=== PATIENT | female | born 1985 | race Caucasian/White ===

== ENCOUNTER 2018-12-31 11:26 | Inpatient (IN) ==
[2018-12-31 11:42] VITALS: BMI 24.8
[2018-12-31] MEDS ORDERED: VANCOMYCIN HCL 1 GM VIAL 1 G in D5W 250 ML IV 250 ML IV ONE (12:18)
--- NOTE | 2018-12-31 12:22 | DR.GENAD ---
HPI Time Seen Time Seen by Provider: 12/31/18 12:05 PCP Primary Care Physician: Kapil HPI Comment HPI Comment: ABSCESS PALM OF RIGHT HAND AND DRAINING SLIGHTLY. ON BACTRIM AND CLINDAMYCIN WITH NAPROXEN SINCE THURSDAY. REDNESS AT WRIST BEFOR MEDS BUT RED STREAKING IS UP TO RIGHT AXILLA. NO FEVER. LESION ON PALM OF RIGHT HAND DRAINING PUS. Complaint/Symptoms Chief Complaint Doctors Comments: BITE RT PALM TIMES ONE WEEK THAT PROGRESSIVELY GOT WORSE. PLACE ON CLINDAMYCIN AND BACTRIM THURSDAY AND TOOK MED FOR 2 DAYS. NOW RED STREAK UP TO RIGHT AXILLA. Chief Complaint:: Patient states that her hand had a small bite looking erich last week. It progressivley got worse until she decided to go to the ER in [place] and they put her on antibiotics. She states that they did not culture the area and that the antibiotics have not started working and she feels like it should have after 72 hours. Nurses notes reviewed Nurses Notes Review: Yes Source History Provided: Patient, Family Member and Friend Mode of Arrival Mode of Arrival: Ambulatory Timing Onset of Chief Complaint: 12/24/18 Came on: Suddenly Duration Duration: Constant Duration: Days Severity Severity: Moderate Modifying Factors Worsens:: MOVEMENT. Improves:: RESTING. Associated Signs and Symptoms Associated Signs and Symptoms: RED STREAKING RUE. Other History Other History: NO HISTORY OF DM. 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 Family History History of Family Medical Conditions: Yes Family Medical History: [place] and Hypertension Social History Does patient currently use any type of tobacco product: No Have you used tobacco products in the last 12 months: No Type of Tobacco Use: None Does any household member use tobacco: No Alcohol Use: None Do you use any recreational Drugs:: No Lives With: Alone Lives Where: Home infectious screening In the last 2 months have you had wt loss of >10#?: NO Have you had fever, night sweats or hemotysis?: No Have you traveled outside the country in the last 6 months?: No Isolation: Standard ROS Review of Systems Constitutional: No Symptoms Reported, Weakness and Fatigue; negative Chills and Fever Eyes: No Symptoms Reported; negative Eye Pain, Tearing and Discharge ENTM: negative Ear Pain, Nose Discharge, Nose Congestion and Throat Pain Respiratoy: No Symptoms Reported, Short of Breath and Wheezing Cardiovascular: No Symptoms Reported and Palpitations; negative Chest Pain and Edema Gastrointestinal/Abdominal: No Symptoms Reported; negative Abdominal Pain, Constipation, Diarrhea, Nausea and Vomiting Genitourinary: No Symptoms Reported; negative Dysuria, Frequency and Hematuria Neurological: No Symptoms Reported and Headache; negative Weakness and Dizziness Musculoskeletal: Muscle Pain; negative Back Pain and Neck Pain Integumentary: No Symptoms Reported, Lesions (ABSCESS LEFT HAND.) and Rash; negative Bruises and Juandice Hematologic/Lymphatic: No Symptoms Reported, Swollen Glands and Lymphadenopathy (RIGHT AXILLA.); negative Anemia, Easy Bleeding and Easy Bruising Endocrine: negative Increased Thirst, Increased Urine and Decreased Appetite Psychiatric: Depression All Other Systems: Reviewed and Negative PE Vital Signs Vitals: Temperature 98.3 F Pulse Rate [Left Brachial] 113 Pulse Rate 104 Respiratory Rate 25 Blood Pressure [Left Arm] 107/68 Blood Pressure 124/84 O2 Sat by Pulse Oximetry 100 General Limitations: No Limitations General Appearance: Alert and In No Apparent Distress; negative In Distress Head Head Exam: Normal Inspection, Atraumatic and Normocephalic Eyes Eye exam: Normal Appearance and PERRL; negative Scleral Icterus and Conjunctival Injection ENT ENT Exam: Normal Exam, Normal Oropharynx, Normal External Ear Exam, Mucous Membranes Moist and TM's Normal Bilaterally External Ear Exam: Normal External Inspection; negative Mastoid Tenderness, Pain with Movement and External Tenderness TM/Canal Exam: Bilateral: Normal Nose Exam: negative Sinus Tenderness, Nasal Deviation and Septal Hematoma Mouth Exam: Normal Inspection; negative Trismus, Lip Swelling and Tongue Swe lling Throat Exam: Normal Inspection; negative Tonsillar Erythema, Tonsillomegaly and Tonsillar Exudate Neck Neck Exam: Normal Inspection, Full ROM and Lymphadenopathy; negative Trachea Midline and Tenderness Chest Chest Inspection: Normal Inspection and Symmetric Chest Wall Rise; negative Tenderness and Rash Respiratory Respiratory Exam: Normal Lung Sounds Bilat; negative Chest Wall Tenderness and Respiratory Distress Respiratory Exam: Bilateral: Clear to Auscultation Cardiovascular Cardiovascular Exam: Regular Rate, Normal Rhythm and Normal Heart Sounds; negative Systolic Murmur, Diastolic Murmur, Rubs and Gallop Abdominal Exam Abdominal Exam: Normal Inspection, Normal Bowel Sounds and Soft; negative Tenderness Extremities Extremities Exam: Tenderness (ABSCESS CELLULITIS RT HAND WITH RED STREAKING TO RT AXILLA.) and Normal Capillary Refill Back Back Exam: Normal Inspection Neurologic Neurological Exam: Alert and Oriented X3; negative Motor Sensory Deficit Psychiatric Psychiatric Exam: Normal Affect and Normal Mood Skin Skin Exam: Rash, Erythema and Other (ABSCESS AND CELLULITIS RIGHT HAND WITH RED STREAKING UP TO AXILLA.) MDM Additional Information Additional Information Obtained From: Family Findings: RUE. Differential Diagnosis Differential Diagnosis: CELLULITIS RIGHT, MEDICATION EFFECT, SEIZURE, AMS, RESPIRATORY DISTRESS. COURSE Treatment Treatment: SEE ORDERS. ROR Labs Reviewed Laboratory Results Reviewed?: Yes Result Diagrams: 01/01/19 05:57 01/01/19 05:57 Laboratory: 12/31/18 12:58 Hand - Right Gram Stain - Final 12/31/18 12:58 Hand - Right Wound Culture - Preliminary WBC 4.6 X10^3/uL (3.6-10.0) 01/01/19 05:57 RBC 3.06 X10^6/uL (3.5-5.4) L 01/01/19 05:57 Hgb 9.3 g/dL (12.0-16.0) L 01/01/19 05:57 Hct 27.8 % (36.0-47.0) L 01/01/19 05:57 MCV 90.8 fL (80.0-100.0) 01/01/19 05:57 MCH 30.3 pg (27.0-34.0) 01/01/19 05:57 MCHC 33.4 g/dL (33.0-35.0) 01/01/19 05:57 RDW 14.6 % (11.6-16.5) 01/01/19 05:57 Plt Count 201 X10^3/uL (150.0-450.0) 01/01/19 05:57 MPV 7.8 fL (7.4-11.0) 01/01/19 05:57 Neut % (Auto) 53.5 % (42.0-75.0) 01/01/19 05:57 Lymph % (Auto) 26.9 % (21.0-51.0) 01/01/19 05:57 [place] % (Auto) 15.4 % (0.0-13.0) H 01/01/19 05:57 Eos % (Auto) 3.7 % (0.9-2.9) H 01/01/19 05:57 Baso % (Auto) 0.5 % (0.2-1.0) 01/01/19 05:57 Neut # (Auto) 2.4 x10^3/uL (2.2-4.8) 01/01/19 05:57 Lymph # (Auto) 1.2 X10^3/uL (1.3-2.9) L 01/01/19 05:57 [place] # (Auto) 0.7 x10^3/uL (0.3-0.8) 01/01/19 05:57 Eos # (Auto) 0.2 x10^3/uL (0.0-0.2) 01/01/19 05:57 Baso # (Auto) 0.0 X10^3/uL (0.0-0.1) 01/01/19 05:57 Absolute Nucleated RBC 0.0 /100WBC 01/01/19 05:57 Sample Site Lr 12/31/18 17:05 ABG pH 7.330 (7.35-7.45) L 12/31/18 17:05 ABG pCO2 39.0 mmHg (35.0-45.0) 12/31/18 17:05 ABG pO2 87.0 mmHg (80.0-100.0) 12/31/18 17:05 ABG HCO3 20.6 mmol/L (22-26) L 12/31/18 17:05 ABG O2 Saturation 96.0 % (90-100) 12/31/18 17:05 ABG Base Excess -4.9 mmol/L (-2.0-2.0) L 12/31/18 17:05 Oleg Test Pos 12/31/18 17:05 A-a Gradient 64.0 mmHg 12/31/18 17:05 FiO2 28.0 12/31/18 17:05 Blood Gas Comments Dereje well cb 12/31/18 17:05 Sodium 140 mmol/L (136-145) 01/01/19 05:57 Corrected Sodium 140 mmol/L (136-145) 01/01/19 05:57 Potassium 3.9 mmol/L (3.5-5.1) 01/01/19 05:57 Chloride 109 mmol/L (98-107) H 01/01/19 05:57 Carbon Dioxide 22.0 mmol/L (21-32) 01/01/19 05:57 BUN 4 mg/dL (7-18) L 01/01/19 05:57 Creatinine 0.79 mg/dL (0.55-1.02) 01/01/19 05:57 Est GFR (MDRD) Af Amer > 60 (>60) 01/01/19 05:57 Est GFR (MDRD) Non-Af > 60 (>60) 01/01/19 05:57 Glucose 117 mg/dL (65-99) H 01/01/19 05:57 Lactic Acid 0.6 mmol/L (0.4-2.0) 12/31/18 13:10 Calcium 7.8 mg/dL (8.5-10.1) L 01/01/19 05:57 Corrected Calcium 9.0 mg/dL (8.5-10.1) 01/01/19 05:57 Total Bilirubin 0.10 mg/dL (0.2-1.0) L 01/01/19 05:57 AST 22 Units/L (15-37) 01/01/19 05:57 ALT 24 Units/L (12-78) 01/01/19 05:57 Alkaline Phosphatase 55 Units/L (46-116) 01/01/19 05:57 Creatine Kinase 122 Units/L (26-192) 12/31/18 13:10 Troponin I < 0.02 ng/mL (0-1.5) 12/31/18 13:10 C-Reactive Protein 130.00 mg/L (0-3.0) H 12/31/18 13:10 Total Protein 5.6 g/dL (6.4-8.2) L 01/01/19 05:57 Albumin 2.5 g/dL (3.4-5.0) L 01/01/19 05:57 Globulin 3.1 g/dL (2.5-4.5) 01/01/19 05:57 Albumin/Globulin Ratio 0.8 Ratio (1.1-2.1) L 01/01/19 05:57 EKG Rate: 113 [place]: LAD Rhythm: ST Block: None Hypertrophy: None ST: Normal Diagnosis Discharge Problem: Seizure, Acute respiratory distress Cellulitis Qualifiers: Site of cellulitis: extremity Site of cellulitis of extremity: upper extremity Laterality: right Qualified Code(s): L03.113 - Cellulitis of right upper limb Adverse drug effect Qualifiers: Encounter type: initial encounter Qualified Code(s): T50.905A - Adverse effect of unspecified drugs, medicaments and biological substances, initial encounter Altered mental state Qualifiers: Altered mental status type: transient alteration of awareness Qualified Code(s): R40.4 - Transient alteration of awareness Accidental medication error Qualifiers: Encounter type: initial encounter Qualified Code(s): T50.901A - Poisoning by unspecified drugs, medicaments and biological substances, accidental (unintentio nal), initial encounter
[2018-12-31] MEDS ORDERED: NS 250 ML IV 250 ML ONE ×2 (12:45→13:40)
[2018-12-31] MEDS ORDERED: TORADOL 30 MG VIAL ONE (12:45)
[2018-12-31] MEDS ORDERED: VANCOMYCIN HCL 1 GM VIAL ONE ×3 (12:45→13:39)
[2018-12-31] MEDS ORDERED: TORADOL 30 MG VIAL IVP ONE (12:46)
[2018-12-31] MEDS ORDERED: ATIVAN INJ 2 MG VIAL ONE (13:13)
[2018-12-31] MEDS ORDERED: ATIVAN INJ 2 MG VIAL IVP ONE (13:26)
[2018-12-31 13:33] LABS: ALANINE AMINOTRANSFERASE 28 Units/L (12-78); ALBUMIN 3.4 g/dL (3.4-5.0); ALKALINE PHOSPHATASE 67 Units/L (46-116); ASPARTATE AMINO TRANSFERASE 23 Units/L (15-37); BLOOD UREA NITROGEN 4 mg/dL (7-18); CALCIUM 8.8 mg/dL (8.5-10.1); CHLORIDE 101 mmol/L (98-107); CREATININE 0.91 mg/dL (0.55-1.02); SODIUM 137 mmol/L (136-145); TOTAL PROTEIN 7.3 g/dL (6.4-8.2); eGFR NON BLACK RACES > 60 (>60)
[2018-12-31] MEDS ORDERED: SOLU-Medrol 125 MG VIAL IVP ONE (13:33)
[2018-12-31] MEDS ORDERED: BENADRYL INJ 50 MG VIAL IVP ONE (13:33)
[2018-12-31] MEDS ORDERED: ADRENALINE CHL INJ IM ONE (13:33)
[2018-12-31 13:34] LABS: ABG BASE EXCESS -10.1 mmol/L (-2.0-2.0); ABG HCO3 24.3 mmol/L (22-26)
[2018-12-31 13:35] LABS: BASOPHILS % (AUTO) 0.4 % (0.2-1.0); EOSINOPHILS # (AUTO) 0.2 x10^3/uL (0.0-0.2); EOSINOPHILS % (AUTO) 2.9 % (0.9-2.9); HEMATOCRIT 33.1 % (36.0-47.0); HEMOGLOBIN 11.1 g/dL (12.0-16.0); LYMPHOCYTES % (AUTO) 14.2 % (21.0-51.0); MEAN CORPUSCULAR HEMOGLOBIN 30.3 pg (27.0-34.0); MEAN CORPUSCULAR HGB CONC 33.7 g/dL (33.0-35.0); MEAN CORPUSCULAR VOLUME 90.1 fL (80.0-100.0); MEAN PLATELET VOLUME 8.1 fL (7.4-11.0); MONOCYTES # (AUTO) 0.8 x10^3/uL (0.3-0.8); MONOCYTES % (AUTO) 11.8 % (0.0-13.0); NEUTROPHILS # (AUTO) 4.9 x10^3/uL (2.2-4.8); NEUTROPHILS % (AUTO) 70.7 % (42.0-75.0); PLATELET COUNT 255 X10^3/uL (150.0-450.0); RED BLOOD COUNT 3.67 X10^6/uL (3.5-5.4); RED CELL DISTRIBUTION WIDTH 14.4 % (11.6-16.5); WHITE BLOOD COUNT 6.9 X10^3/uL (3.6-10.0)
[2018-12-31 13:35] LABS: ABG ALLEN TEST POS
[2018-12-31] MEDS: NS 1000 ML 1,000 ML IV SCH ×2 (14:14→18:38)
[2018-12-31] MEDS ORDERED: NS 1000 ML 1,000 ML IV ONE (15:45)
[2018-12-31 17:12] LABS: ABG ALLEN TEST POS; ABG BASE EXCESS -4.9 mmol/L (-2.0-2.0); ABG HCO3 20.6 mmol/L (22-26)
[2018-12-31 17:17] LABS: CREATINE KINASE 122 Units/L (26-192); TROPONIN I < 0.02 ng/mL (0-1.5)
[2018-12-31] MEDS ORDERED: DEMEROL INJ ONE (17:36)
[2018-12-31] MEDS ORDERED: ZOFRAN INJ 4 MG VIAL ONE (17:36)
[2018-12-31] MEDS ORDERED: DEMEROL INJ IVP ONE (17:58)
[2018-12-31] MEDS ORDERED: ZOFRAN INJ 4 MG VIAL IVP ONE (17:59)
[2018-12-31] MEDS ORDERED: ZOFRAN INJ 4 MG VIAL IVP PRN (18:19)
[2018-12-31] MEDS: TORADOL 30 MG VIAL IVP PRN (19:50)
[2018-12-31] MEDS: NORCO 5/325 MG TAB PO PRN (21:44)
[2019-01-01] MEDS: TORADOL 30 MG VIAL IVP PRN ×2 (02:39→16:32)
[2019-01-01] MEDS: NS 1000 ML 1,000 ML IV SCH ×3 (02:43→16:26)
[2019-01-01] MEDS: DEMEROL INJ IVP PRN ×4 (05:30→19:50)
[2019-01-01 06:26] LABS: ALANINE AMINOTRANSFERASE 24 Units/L (12-78); ALBUMIN 2.5 g/dL (3.4-5.0); ALKALINE PHOSPHATASE 55 Units/L (46-116); ASPARTATE AMINO TRANSFERASE 22 Units/L (15-37); BLOOD UREA NITROGEN 4 mg/dL (7-18); CALCIUM 7.8 mg/dL (8.5-10.1); CHLORIDE 109 mmol/L (98-107); COR NA(FOR HYPERGLY) 140 mmol/L (136-145); CREATININE 0.79 mg/dL (0.55-1.02); SODIUM 140 mmol/L (136-145); TOTAL PROTEIN 5.6 g/dL (6.4-8.2); eGFR NON BLACK RACES > 60 (>60)
[2019-01-01 06:28] LABS: BASOPHILS % (AUTO) 0.5 % (0.2-1.0); EOSINOPHILS # (AUTO) 0.2 x10^3/uL (0.0-0.2); EOSINOPHILS % (AUTO) 3.7 % (0.9-2.9); HEMATOCRIT 27.8 % (36.0-47.0); HEMOGLOBIN 9.3 g/dL (12.0-16.0); LYMPHOCYTES # (AUTO) 1.2 X10^3/uL (1.3-2.9); LYMPHOCYTES % (AUTO) 26.9 % (21.0-51.0); MEAN CORPUSCULAR HEMOGLOBIN 30.3 pg (27.0-34.0); MEAN CORPUSCULAR HGB CONC 33.4 g/dL (33.0-35.0); MEAN CORPUSCULAR VOLUME 90.8 fL (80.0-100.0); MEAN PLATELET VOLUME 7.8 fL (7.4-11.0); MONOCYTES # (AUTO) 0.7 x10^3/uL (0.3-0.8); MONOCYTES % (AUTO) 15.4 % (0.0-13.0); NEUTROPHILS # (AUTO) 2.4 x10^3/uL (2.2-4.8); NEUTROPHILS % (AUTO) 53.5 % (42.0-75.0); PLATELET COUNT 201 X10^3/uL (150.0-450.0); RED BLOOD COUNT 3.06 X10^6/uL (3.5-5.4); RED CELL DISTRIBUTION WIDTH 14.6 % (11.6-16.5); WHITE BLOOD COUNT 4.6 X10^3/uL (3.6-10.0)
[2019-01-01] MEDS: VANCOMYCIN HCL 1 GM VIAL 1 G in D5W 250 ML IV 250 ML IV SCH ×2 (08:32→21:21)
[2019-01-01] MEDS: NORCO 5/325 MG TAB PO PRN ×2 (10:20→23:11)
--- NOTE | 2019-01-01 15:22 | DR.H&P ---
H&P - History & Physical for Day of: H&P Date: 12/31/18 - Chief Complaint Chief Complaint: CELLULITIS, "INFECTED BITED" TO LEFT HAND - History of Present Illness History of Present Illness: 33 WF ER ADMISSION AFTER PRESENTING WITH CO BITE TO RIGHT PALM OF HAND WITH REDNESS UP HER RIGHT ARM. PT DENIES INJURY. PT STATES SHE WAS SEEN IN ER IN [place] ON THURSDAY AND WAS STARTED ON PO BACTRIM AND CLINDAMYCIN WITHOUT IMPROVEMENT. REDNESS SPREAD TO RIGHT FOREARM. PT HAS CULTURE COLLECTED IN THE ER. PT HAD MEDICATION REACTION IN THER ER, ADMITTED FOR MONITORING AND IV ATBIOTIC THERAPY. 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 - Family History Family Medical History: [place], Hypertension - Social History Does patient currently use any type of tobacco product: No Have you used tobacco products in the last 12 months: No Type of Tobacco Use: None How many years tobacco product used: 15 Does any household member use tobacco: No Alcohol Use: None Drug Use: Prescription Drugs - Medications Home Medications: dicyclomine [From Bentyl] Allergy (Verified 12/07/18 19:02) haloperidol [From Haldol] Allergy (Verified 12/07/18 19:02) iodine Allergy (Verified 12/07/18 19:02) naproxen Allergy (Verified 12/07/18 19:02) - Review of Systems Constitutional: No Symptoms Reported Eyes: No Symptoms Reported ENT: No Symptoms Reported Respiratory: No Symptoms Reported Cardiovascular: No Symptoms Reported Gastrointestinal: No Symptoms Reported Genitourinary: No Symptoms Reported Musculoskeletal: Arm Pain Skin: Wound Neurological: No Symptoms Reported - Physical Exam Vital Signs: Temperature 98.6 F Pulse Rate [Left Brachial] 113 Pulse Rate 95 Respiratory Rate 18 Blood Pressure [Left Arm] 107/68 Blood Pressure 115/56 O2 Sat by Pulse Oximetry 100 Oriented: Normal Eyes: Blurred Vision Ear: Normal Nose: Normal Throat: Normal Respiratory: Clear Throughout Cardiovascular: Normal : Normal Auscultation: Bowel Sounds: Normal Palpation: Normal Tenderness: Normal Skin: Red, Tender, Wound (RIGHT PALM) Musculoskeletal: Right, Hand, Swelling, Tender Affect: Anxious Speech Pattern: Clear, Appropriate - Assessment/Plan (1) Cellulitis Qualifiers: Site of cellulitis: extremity Site of cellulitis of extremity: upper extremity Laterality: right Qualified Code(s): L03.113 - Cellulitis of right upper limb Status: Acute Plan: ADMIT, CULTURE COLLECTED ON ADMISSION. WOUND CARE, IV ATBX THERAPY. IV H YDRATION, PAIN CONTROL (2) Adverse drug effect Qualifiers: Encounter type: initial encounter Qualified Code(s): T50.905A - Adverse effect of unspecified drugs, medicaments and biological substances, initial encounter Status: Acute Plan: CARDIAC MONITORING, BP CONTROL. PRN SUPPLEMENTAL O2 - Allergies Allergies/Adverse Reactions: Allergies Allergy/AdvReac Type Severity Reaction Status Date / Time dicyclomine [From Bentyl] Allergy Verified 12/07/18 19:02 haloperidol [From Haldol] Allergy Verified 12/07/18 19:02 iodine Allergy Verified 12/07/18 19:02 naproxen Allergy Verified 12/07/18 19:02
--- NOTE | 2019-01-01 15:24 | RAD ---
Examination: Right hand, three views History: Cellulitis Findings: There is diffuse soft tissue swelling involving the hand and fingers. There is no evidence for fracture, bone infection, articular deformity or radiopaque foreign body. Impression: No acute or significant osseous lesion demonstrated. Reported By:
[2019-01-01] MEDS: RESTORIL CAP 15 MG PO PRN (21:33)
[2019-01-02] MEDS: NORCO 5/325 MG TAB PO PRN ×3 (05:31→21:34)
[2019-01-02] MEDS: DEMEROL INJ IVP PRN ×2 (07:31→19:36)
[2019-01-02] MEDS: WELLBUTRIN XL 300 MG (DAILY) PO SCH (08:30)
[2019-01-02] MEDS: ZOLOFT PO SCH (08:30)
[2019-01-02] MEDS: ZANTAC PO SCH (08:31)
[2019-01-02] MEDS: ZANAFLEX PO SCH ×2 (08:31→21:23)
[2019-01-02] MEDS: VALTREX PO SCH ×3 (08:38→21:23)
[2019-01-02] MEDS ORDERED: METHOCARBAMOL 500 MG PO SCH (09:00)
[2019-01-02 09:26] LABS: CREATININE 0.75 mg/dL (0.55-1.02); VANCOMYCIN,TROUGH 6.1 ug/mL (15-20)
[2019-01-02] MEDS: VANCOMYCIN HCL 1 GM VIAL 1 G in D5W 250 ML IV 250 ML IV SCH ×2 (10:00→21:50)
[2019-01-02] MEDS ORDERED: PHARMACY COMMENT IV NR (20:30)
[2019-01-02 21:11] LABS: CREATININE 0.93 mg/dL (0.55-1.02); VANCOMYCIN,TROUGH 6.9 ug/mL (15-20)
[2019-01-02] MEDS ORDERED: VALTREX PO ONE (21:12)
[2019-01-02] MEDS: RESTORIL CAP 15 MG PO PRN (21:26)
[2019-01-02] MEDS ORDERED: NS 250 ML IV 250 ML ONE (21:42)
[2019-01-02] MEDS ORDERED: VANCOMYCIN HCL 500 MG VIAL ONE (21:42)
[2019-01-02] MEDS ORDERED: VANCOMYCIN HCL 1 GM VIAL ONE (21:43)
[2019-01-02] MEDS ORDERED: VANCOMYCIN HCL 500 MG VIAL 250 MG, VANCOMYCIN HCL 1 GM VIAL 1 G in NS 250 ML IV 250 ML IV SCH ×6 (22:00)
[2019-01-03] MEDS: DEMEROL INJ IVP PRN ×4 (01:40→21:05)
[2019-01-03] MEDS: NORCO 5/325 MG TAB PO PRN ×3 (03:55→19:41)
[2019-01-03] MEDS ORDERED: VALTREX PO ONE (05:23)
[2019-01-03] MEDS: VALTREX PO SCH ×3 (05:25→21:02)
[2019-01-03 06:07] LABS: EOSINOPHILS # (AUTO) 0.2 x10^3/uL (0.0-0.2); HEMATOCRIT 29.1 % (36.0-47.0); LYMPHOCYTES # (AUTO) 1.7 X10^3/uL (1.3-2.9); LYMPHOCYTES % (AUTO) 39.6 % (21.0-51.0); MEAN CORPUSCULAR HEMOGLOBIN 30.3 pg (27.0-34.0); MEAN CORPUSCULAR HGB CONC 34.2 g/dL (33.0-35.0); MEAN CORPUSCULAR VOLUME 88.6 fL (80.0-100.0); MEAN PLATELET VOLUME 7.5 fL (7.4-11.0); MONOCYTES # (AUTO) 0.4 x10^3/uL (0.3-0.8); MONOCYTES % (AUTO) 8.4 % (0.0-13.0); PLATELET COUNT 258 X10^3/uL (150.0-450.0); RED BLOOD COUNT 3.28 X10^6/uL (3.5-5.4); RED CELL DISTRIBUTION WIDTH 14.2 % (11.6-16.5); WHITE BLOOD COUNT 4.4 X10^3/uL (3.6-10.0)
[2019-01-03 06:26] LABS: ALANINE AMINOTRANSFERASE 24 Units/L (12-78); ALBUMIN 2.5 g/dL (3.4-5.0); ALKALINE PHOSPHATASE 59 Units/L (46-116); ASPARTATE AMINO TRANSFERASE 21 Units/L (15-37); BLOOD UREA NITROGEN 6 mg/dL (7-18); CALCIUM 8.2 mg/dL (8.5-10.1); CARBON DIOXIDE 23.9 mmol/L (21-32); CHLORIDE 106 mmol/L (98-107); COR CA(FOR HYPOALB) 9.4 mg/dL (8.5-10.1); CREATININE 0.75 mg/dL (0.55-1.02); SODIUM 141 mmol/L (136-145); TOTAL PROTEIN 5.9 g/dL (6.4-8.2); eGFR NON BLACK RACES > 60 (>60)
[2019-01-03] MEDS: VANCOMYCIN HCL 1 GM VIAL 1 G in NS 250 ML IV 250 ML IV SCH ×3 (08:30→21:04)
[2019-01-03] MEDS: ZANTAC PO SCH (09:00)
[2019-01-03] MEDS: ZANAFLEX PO SCH ×2 (09:00→21:03)
[2019-01-03] MEDS: NS 1000 ML 1,000 ML IV SCH ×5 (09:18→21:03)
[2019-01-03] MEDS: WELLBUTRIN XL 300 MG (DAILY) PO SCH (09:25)
[2019-01-03] MEDS: ZOLOFT PO SCH (11:32)
[2019-01-03] MEDS: VISTARIL PO PRN ×2 (11:44→19:41)
[2019-01-03] MEDS: TORADOL 30 MG VIAL IVP PRN ×2 (14:47→21:04)
[2019-01-03] MEDS: RESTORIL CAP 15 MG PO PRN (21:04)
[2019-01-04] MEDS: NS 1000 ML 1,000 ML IV SCH ×2 (02:02→04:47)
[2019-01-04] MEDS: TORADOL 30 MG VIAL IVP PRN ×2 (02:02→08:12)
[2019-01-04] MEDS: DEMEROL INJ IVP PRN ×2 (02:03→08:10)
[2019-01-04] MEDS: VANCOMYCIN HCL 1 GM VIAL 1 G in NS 250 ML IV 250 ML IV SCH (05:07)
[2019-01-04] MEDS: VALTREX PO SCH (05:07)
[2019-01-04] MEDS: NORCO 5/325 MG TAB PO PRN (05:08)
[2019-01-04] MEDS ORDERED: PHARMACY COMMENT IV SCH (05:30)
[2019-01-04 05:46] LABS: BASOPHILS # (AUTO) 0.1 X10^3/uL (0.0-0.1); BASOPHILS % (AUTO) 1.2 % (0.2-1.0); EOSINOPHILS # (AUTO) 0.3 x10^3/uL (0.0-0.2); EOSINOPHILS % (AUTO) 5.6 % (0.9-2.9); HEMOGLOBIN 10.4 g/dL (12.0-16.0); LYMPHOCYTES # (AUTO) 1.9 X10^3/uL (1.3-2.9); LYMPHOCYTES % (AUTO) 37.5 % (21.0-51.0); MEAN CORPUSCULAR HEMOGLOBIN 30.1 pg (27.0-34.0); MEAN CORPUSCULAR HGB CONC 33.4 g/dL (33.0-35.0); MEAN CORPUSCULAR VOLUME 89.9 fL (80.0-100.0); MEAN PLATELET VOLUME 7.9 fL (7.4-11.0); MONOCYTES # (AUTO) 0.4 x10^3/uL (0.3-0.8); MONOCYTES % (AUTO) 8.5 % (0.0-13.0); NEUTROPHILS # (AUTO) 2.4 x10^3/uL (2.2-4.8); NEUTROPHILS % (AUTO) 47.2 % (42.0-75.0); PLATELET COUNT 255 X10^3/uL (150.0-450.0); RED BLOOD COUNT 3.45 X10^6/uL (3.5-5.4); WHITE BLOOD COUNT 5.1 X10^3/uL (3.6-10.0)
[2019-01-04 05:55] LABS: ALANINE AMINOTRANSFERASE 28 Units/L (12-78); ALBUMIN 2.6 g/dL (3.4-5.0); ALKALINE PHOSPHATASE 57 Units/L (46-116); ASPARTATE AMINO TRANSFERASE 25 Units/L (15-37); BLOOD UREA NITROGEN 4 mg/dL (7-18); CALCIUM 8.1 mg/dL (8.5-10.1); CARBON DIOXIDE 24.4 mmol/L (21-32); CHLORIDE 108 mmol/L (98-107); COR CA(FOR HYPOALB) 9.2 mg/dL (8.5-10.1); CREATININE 0.69 mg/dL (0.55-1.02); SODIUM 142 mmol/L (136-145); eGFR NON BLACK RACES > 60 (>60)
[2019-01-04] MEDS: WELLBUTRIN XL 300 MG (DAILY) PO SCH (08:08)
[2019-01-04] MEDS: ZANTAC PO SCH (08:08)
[2019-01-04] MEDS: ZANAFLEX PO SCH (08:09)
[2019-01-04] MEDS: ZOLOFT PO SCH (08:36)
[2019-01-04 09:17] VITALS: BP 132/81
== END 2019-01-04 10:23 | disposition left against medical advice (07) | DRG 603 ==
LOC: ICU 11:34 → ER 11:34 → ICU 18:03
PROVIDERS: ADMIT Internal Medicine; ATTEND Internal Medicine
DX: R40.4 Transient alteration of awareness; I95.89 Other hypotension; B95.62 Methicillin resistant Staphylococcus aureus infection as the cause of diseases classified elsewhere; T50.905A Adverse effect of unspecified drugs, medicaments and biological substances, initial encounter; M50.30 Other cervical disc degeneration, unspecified cervical region; L03.113 Cellulitis of right upper limb
CPT/HCPCS: 36415; 36600; 73130; 80053; 80202; 82550; 82565; 82803; 83605; 84484; 85025; 86140; 87040; 87070; 87075; 87077; 87186; 87205; 93005; 96365; 96367; 96374; 96375; 99285; A4222; Q0177; G0378; J1885; J2060; J2175; J2405; J3370; J7030; J7050; J7060